=== PATIENT | male | born 1960 | race Caucasian/White ===

== ENCOUNTER → 2021-02-28 | Outpatient (CLI) | payer MEDICARE ==
[~2021-02-28] MED LIST: ALEN70TA77 PO; ASPI325T17 PO; ATOR20TA37 PO; CHOL10003 PO; DOXE10CA PO; FEXO60TA9 PO; FLAX10004 PO; GLUC1TAB9 PO; HYDR25TA6 PO; MULT-449 PO; VIT1CAPS42 PO; VITA0.4T18 PO; [UNRECOGNIZED DRUG - CODE] TP
[2021-02-28 15:35] LABS: BASOPHILS % (AUTO) 1 % (0-1); EOSINOPHILS % (AUTO) 1 % (1-7); LYMPHOCYTES % (AUTO) 18 % (22-44); MEAN CORPUSCULAR HEMOGLOBIN 27.9 pg (27.5-34.5); MEAN CORPUSCULAR HGB CONC 33.7 g/dL (33.2-36.2); MEAN PLATELET VOLUME 8.7 fL (7.4-10.4); MONOCYTES % (AUTO) 6 % (2-9); NEUTROPHILS % (AUTO) 74 % (42-75); PLATELET COUNT 245 x10^3/uL (130-400); RED BLOOD COUNT 5.66 x10^6/uL (4.38-5.82); RED CELL DISTRIBUTION WIDTH 15.2 % (9.4-14.8)
[2021-02-28 15:35] LABS: MICROSCOPIC NOT IND
[2021-02-28 15:46] LABS: ANION GAP 8 mmol/L (5-15); CALCIUM 8.5 mg/dL (8.5-10.1); CHLORIDE 106 mmol/L (98-107)
[2021-02-28 15:47] LABS: PROTHROMBIN TIME 10.7 Seconds (9.6-11.5)
[2021-02-28 15:49] LABS: ALANINE AMINOTRANSFERASE 36 U/L (12-78); ALKALINE PHOSPHATASE 111 U/L (45-117); BILIRUBIN,TOTAL 0.6 mg/dL (0.2-1.0); CREATININE 0.91 mg/dL (0.7-1.3); TOTAL PROTEIN 7.5 g/dL (6.4-8.2)
== END | disposition home or self-care (01) ==
LOC: STAR 13:54
PROVIDERS: ATTEND Orthopaedic Surgery
DX: Z01.818 Encounter for other preprocedural examination (principal); Z20.822 Contact with and (suspected) exposure to COVID-19
CPT/HCPCS: 36415; 80053; 81003; 83036; 85025; 85610; 85730; 87081; 87806; 93005; U0003; U0005; G0475

== ENCOUNTER 2021-03-06 06:58 | Observation (INO) | payer MEDICARE ==
[~2021-03-06] VITALS: Ht 185.4 cm; Wt 152.3 kg
[2021-03-06] MEDS ORDERED: GABAPENTIN 300 MG CAPSULE PO ONE (07:30)
[2021-03-06] MEDS ORDERED: ACETAMINOPHEN 500 MG TABLET PO ONE (07:30)
[2021-03-06] MEDS ORDERED: CHLORHEXIDINE 15 ML UDC PO ONE (07:30)
[2021-03-06 07:32] VITALS: BP 156/94
[2021-03-06] MEDS ORDERED: LACTATED RINGERS 1,000 ML IV SCH (08:00)
[2021-03-06] MEDS ORDERED: MAGNESIUM HYDROXIDE 8%, 30ML UDC PO PRN (08:30)
[2021-03-06] MEDS ORDERED: ACETAMINOPHEN 650 MG/20.3 ML UDC PO PRN (08:30)
[2021-03-06] MEDS ORDERED: METOCLOPRAMIDE 5 MG/ML, 2ML IVPush PRN (08:30)
[2021-03-06] MEDS ORDERED: ONDANSETRON 4 MG TABLET PO PRN (08:30)
[2021-03-06] MEDS ORDERED: DIPHENHYDRAMINE 50 MG/ML, 1ML IVPush PRN (08:30)
[2021-03-06] MEDS ORDERED: DIPHENHYDRAMINE 25 MG CAPSULE PO PRN (08:30)
[2021-03-06] MEDS ORDERED: SENNA/DOCUSATE TABLET PO PRN (08:30)
[2021-03-06] MEDS ORDERED: ALUMINUM/MAG/SIMETHICONE 30 ML UDC PO PRN (08:30)
[2021-03-06] MEDS ORDERED: PSYLLIUM PACKET PO PRN (08:30)
[2021-03-06] MEDS ORDERED: ONDANSETRON 2MG/ML, 2ML IVPush PRN ×2 (08:30→11:00)
[2021-03-06] MEDS ORDERED: HYDROmorphone 1 MG/ML, 1ML INJ IVPush PRN ×2 (08:30→11:00)
[2021-03-06] MEDS ORDERED: TRANEXAMIC ACID 1,000 MG in SODIUM CHLORIDE 0.9% 100 ML IVPB ONE (08:30)
[2021-03-06] MEDS ORDERED: POLYETHYLENE GLYCOL 17 GM PACKET PO PRN (08:30)
[2021-03-06] MEDS: DOCUSATE 100 MG CAPSULE PO SCH ×2 (09:00→22:40)
[2021-03-06] MEDS: TAMSULOSIN 0.4 MG CAP.ER.24H PO SCH (09:00)
[2021-03-06] MEDS ORDERED: ROPIvacaine/PF 0.2%, 20 ML ONE (10:29)
[2021-03-06] MEDS ORDERED: KETOROLAC 60 MG/2 ML ONE (10:29)
[2021-03-06] MEDS ORDERED: VANCOMYCIN 1,000 MG ONE (10:29)
[2021-03-06] MEDS ORDERED: SODIUM CHLORIDE 0.9% 50 ML ONE ×2 (10:29)
[2021-03-06] MEDS ORDERED: TRANEXAMIC ACID 100 MG/ML, 10ML ONE (10:29)
[2021-03-06] MEDS ORDERED: SUCCINYLCHOLINE 20 MG/ML, 10ML ONE (10:56)
[2021-03-06] MEDS ORDERED: DEXAMETHASONE 4 MG/ML, 1ML ONE (10:56)
[2021-03-06] MEDS ORDERED: KETAMINE 50 MG/ML, 10ML ONE (10:56)
[2021-03-06] MEDS ORDERED: NEOSTIGMINE 1 MG/ML, 10ML ONE (10:56)
[2021-03-06] MEDS ORDERED: PROPOFOL 10 MG/ML, 20ML ONE (10:56)
[2021-03-06] MEDS ORDERED: GLYCOPYRROLATE 0.2MG/1ML, 5ML ONE (10:56)
[2021-03-06] MEDS ORDERED: LIDOCAINE 1%, 20ML ONE (10:56)
[2021-03-06] MEDS ORDERED: ROCURONIUM 10 MG/ML,10ML ONE (10:56)
[2021-03-06] MEDS ORDERED: ONDANSETRON 2MG/ML, 2ML ONE (10:56)
[2021-03-06] MEDS ORDERED: OXYcodone 5 MG/5 ML ORAL.SOL UDC PO PRN (11:00)
[2021-03-06] MEDS ORDERED: PROMETHAZINE 25 MG/ML, 1ML IVPush PRN (11:00)
[2021-03-06] MEDS ORDERED: MEPERIDINE/PF 25MG/0.5ML IVPush PRN (11:00)
[2021-03-06] MEDS ORDERED: LABETALOL 5MG/ML, 20ML IV PRN (11:00)
[2021-03-06] MEDS ORDERED: EPHEDRINE 50 MG/ML, 1ML IVPush PRN (11:00)
[2021-03-06] MEDS ORDERED: hydrALAzine 20 MG/ML, 1ML IV PRN (11:00)
[2021-03-06] MEDS ORDERED: ACETAMINOPHEN 325 MG TABLET PO PRN (11:00)
[2021-03-06] MEDS ORDERED: METHOCARBAMOL 1,000 MG in DEXTROSE 5% 100 ML IV PRN (11:00)
[2021-03-06] MEDS ORDERED: LORazepam 2 MG/ML, 1ML IVPush PRN (11:00)
[2021-03-06] MEDS ORDERED: MIDAZOLAM 1 MG/ML, 2ML ONE (11:23)
[2021-03-06] MEDS ORDERED: FENTANYL PF 250 MCG/5ML ONE (11:24)
[2021-03-06] MEDS ORDERED: EPINEPHRINE 1 MG/ML, 1ML INFIL ONE (11:33)
[2021-03-06] MEDS ORDERED: HYDROmorphone 1 MG/ML, 1ML INJ ONE ×2 (11:37→11:57)
[2021-03-06] MEDS ORDERED: FENTANYL PF 100 MCG/2ML ONE (13:09)
[2021-03-06] MEDS: FENTANYL PF 100 MCG/2ML IV PRN ×2 (13:11→13:31)
[2021-03-06 14:30] VITALS: BP 135/73
[2021-03-06] MEDS ORDERED: MEPERIDINE/PF 50 MG/ML ONE (14:49)
[2021-03-06] MEDS ORDERED: CETIRIZINE 10 MG TABLET PO PRN (16:00)
[2021-03-06] MEDS: KETOROLAC 30 MG/1 ML IV SCH (17:51)
[2021-03-06] MEDS: POTASSIUM CHLORIDE 20 MEQ in D5%-0.45% NACL 1,000 ML IV SCH (17:52)
[2021-03-06] MEDS: CEFAZOLIN PMX 1GM/50ML 50 ML IVPB SCH (17:52)
[2021-03-06] MEDS: OXYcodone IR 5MG TABLET PO PRN ×2 (18:13→22:40)
[2021-03-06 18:42] VITALS: BP 126/65
[2021-03-06] MEDS ORDERED: DOXEPIN 10 MG CAPSULE PO SCH (21:00)
[2021-03-06] MEDS ORDERED: ATORVASTATIN 20 MG TABLET PO SCH (21:00)
[2021-03-06] MEDS ORDERED: VANCOMYCIN 1,000 MG in SODIUM CHLORIDE 0.9% 100 ML IVPB ONE (22:30)
[2021-03-07 00:20] VITALS: BP 132/86
[2021-03-07] MEDS: KETOROLAC 30 MG/1 ML IV SCH ×2 (03:33→11:23)
[2021-03-07] MEDS: CEFAZOLIN PMX 1GM/50ML 50 ML IVPB SCH (03:33)
[2021-03-07] MEDS: POTASSIUM CHLORIDE 20 MEQ in D5%-0.45% NACL 1,000 ML IV SCH (03:33)
[2021-03-07] MEDS: OXYcodone IR 5MG TABLET PO PRN ×3 (04:01→12:14)
[2021-03-07 04:56] VITALS: BP 114/77
[2021-03-07] MEDS ORDERED: RIVAROXABAN 10 MG TABLET PO SCH (06:00)
[2021-03-07] MEDS ORDERED: DEXAMETHASONE 4 MG/ML, 1ML IVPush ONE (06:00)
[2021-03-07 07:05] VITALS: BP 117/78
[2021-03-07] MEDS: DOCUSATE 100 MG CAPSULE PO SCH (08:39)
[2021-03-07] MEDS: TAMSULOSIN 0.4 MG CAP.ER.24H PO SCH (08:41)
[2021-03-07] MEDS ORDERED: HYDROCHLOROTHIAZIDE 12.5 MG CAPSULE PO SCH (09:00)
[2021-03-07 11:32] VITALS: BP 127/73
== END 2021-03-07 12:38 | disposition home or self-care (01) ==
LOC: OUT 06:58 → ORIP 08:27 → 4NE 14:25 → DCLOUNGE 03-07 12:30
PROVIDERS: ADMIT Orthopaedic Surgery; ATTEND Orthopaedic Surgery
DX: M17.31 Unilateral post-traumatic osteoarthritis, right knee (principal); M71.21 Synovial cyst of popliteal space [Baker], right knee; M81.0 Age-related osteoporosis without current pathological fracture; I10 Essential (primary) hypertension; E78.5 Hyperlipidemia, unspecified; G47.30 Sleep apnea, unspecified; Z86.718 Personal history of other venous thrombosis and embolism; Z79.899 Other long term (current) drug therapy
CPT/HCPCS: 27447; 36415; 73560; 85014; 85018; 96365; 96366; 96367; 96375; 96376; 97110; 97161; 97166; C1713; C1776; G0378; J0171; J0330; J0690; J1100; J1170; J1200; J1885; J2175; J2250; J2405; J2704; J2710; J2795; J2800; J3010; J3370; J3480; J3490; J7120; Q0162